=== PATIENT | male | born 1995 | race Caucasian/White ===

== ENCOUNTER 2017-08-21 20:23 | Emergency (ER) | payer OTHER, BC ==
[~2017-08-21] VITALS: Ht 170.2 cm; Wt 73.8 kg
[2017-08-21 20:25] VITALS: TEMP 36.7; Ht 170.2 cm; Wt 73.8 kg
[2017-08-21] MEDS ORDERED: IBUPROFEN 600 MG TAB PO STA (20:31)
--- NOTE | 2017-08-21 21:07 | DIAGNOSTIC IMAGING REPORT ---
R ANKLE MIN 3 VIEWS ROUTINE CLINICAL HISTORY: Right ankle pain status post trauma COMPARISON: None. DISCUSSION: No fractures or dislocations are visualized. There is moderate lateral soft tissue swelling. The ankle mortise appears intact on these nonstress views. IMPRESSION: Lateral soft tissue swelling. No fractures identified. Electronically signed by: Jimmy Rojas M.D. 08/21/2017 9:06 PM Dictated Date/Time: 08/21/2017 9:05 PM
--- NOTE | 2017-08-21 21:17 | EMERGENCY ROOM VISIT NOTE ---
ED Visit Note First contact with patient: 20:29 CHIEF COMPLAINT: Right ankle injury HISTORY OF PRESENT ILLNESS: This 21-year-old male patient sustained an injury to the right ankle with a twisting, inversion motion about an hour ago when he fell. Complains of swelling and pain. The patient is able to bear weight on the foot but with pain. Constant pain, moderate to severe, worse with movement , weight bearing, and the dependent position. No knee pain. Patient does admit to some tingling in his toes. REVIEW OF SYSTEMS: 6 system review was performed and was negative unless stated otherwise in history of present illness. PMH: No prior significant ankle injury. Asthma SOCIAL HISTORY: Patient denies any tobacco or alcohol use PHYSICAL EXAM: Vital Signs: Were reviewed reviewed Nurse's notes. GENERAL: 21- year-old white male appears in no acute distress. MENTAL STATUS: Alert, oriented, and cooperative. RIGHT ANKLE: The ankle is swollen and tender over the lateral aspect but the skin is intact and there is no ligamentous instability. There is no deformity. The foot and toes are warm and well- perfused. Sensation to pain and light touch is intact. EMERGENCY DEPARTMENT COURSE: The patient was evaluated. An ice pack was applied. The patient was given Motrin 600 mg p.o. for pain. X-ray of the right ankle was ordered interpreted by the radiologist and myself. DIAGNOSTICS:R ANKLE MIN 3 VIEWS ROUTINE CLINICAL HISTORY: Right ankle pain status post trauma COMPARISON: None. DISCUSSION: No fractures or dislocations are visualized. There is moderate lateral soft tissue swelling. The ankle mortise appears intact on these nonstress views. IMPRESSION: Lateral soft tissue swelling. No fractures identified. Electronically signed by: Jimmy Rojas M.D. 08/21/2017 9:06 PM The patient was informed of the findings. The patient was placed in a gel splint and given crutches. The patient was discharged home in stable condition. DIAGNOSIS: Right sprained Ankle DISCHARGE INSTRUCTIONS: Ice and elevation over the next 24 hours. Ibuprofen, 600 mg every 6 hours if needed for pain. Use crutches and wear gel splint until weightbearing is tolerable. If there is no improvement in 3-5 days followup with your doctor or an orthopedic surgeon . Vital Signs Date Time Temp Pulse Resp B/P (MAP) Pulse Ox O2 Delivery O2 Flow Rate FiO2 08/21/17 20:25 36.7 75 18 120/78 99 Room Air Medications Administered Medications (Trade) Dose Ordered Sig/Jaiden Route Start Time Stop Time Status Last Admin Dose Admin Ibuprofen (Motrin Tab) 600 mg NOW STAT PO 08/21/17 20:31 08/21/17 20:33 DC 08/21/17 20:31 600 MG Departure Information Referrals Ford Modi M.D. (PCP) Patient Instructions [facility]
[2017-08-21 21:37] VITALS: BP 122/70; PULSE 66; O2SAT 98
== END 2017-08-21 21:37 | disposition home or self-care (01) ==
LOC: C.EDB 20:24 → C.EDD 21:37
DX: S93.401A Sprain of unspecified ligament of right ankle, initial encounter (principal); X50.9XXA Other and unspecified overexertion or strenuous movements or postures, initial encounter; J45.909 Unspecified asthma, uncomplicated

== ENCOUNTER → 2017-10-25 | Outpatient (CLI) | payer BC | END | disposition home or self-care (01) | LOC: C.LABMFLN 08:35 | PROVIDERS: ATTEND Family Medicine | DX: Z00.00 Encounter for general adult medical examination without abnormal findings (principal) ==